=== PATIENT | female | born 1990 | race Caucasian/White ===

== ENCOUNTER 2016-03-23 16:23 | Emergency (ER) | payer SELFPAY ==
[~2016-03-23 16:23] MED LIST: CIPRO250 M1 PO; FLOMAX 0.40.4 MG/CAP PO; FLOMAX PO; IBUPROFEN800 MG PO; LEVAQUIN 2250 MG/TAB PO; ORPHENADRINE C100 MG PO; PERCOCET 325 MG1 TA2 PO; PERCOCET 325 MG1 TA5 PO; QC IBUPROFEN200 MG PO; ZOFRAN ODT4 MG PO
[2016-03-23 20:25] VITALS: BP 168/100
== END 2016-03-23 20:25 | disposition home or self-care (01) ==
LOC: ED 16:23
DX: R10.32 Left lower quadrant pain (principal); R11.2 Nausea with vomiting, unspecified; N80.8 Other endometriosis
CPT/HCPCS: J2270; J2405; J7030

== ENCOUNTER 2016-08-19 16:11 | Emergency (ER) | payer SELFPAY ==
[2016-08-19 18:18] VITALS: BP 195/113
== END 2016-08-19 17:55 | disposition home or self-care (01) ==
LOC: ED 16:11
DX: S43.401A Unspecified sprain of right shoulder joint, initial encounter (principal); S50.11XA Contusion of right forearm, initial encounter; W17.89XA Other fall from one level to another, initial encounter; Y92.008 Other place in unspecified non-institutional (private) residence as the place of occurrence of the external cause; Z76.5 Malingerer [conscious simulation]; E66.9 Obesity, unspecified
CPT/HCPCS: A4565

== ENCOUNTER 2017-01-05 19:38 | Emergency (ER) | payer SELFPAY ==
[~2017-01-05] VITALS: Ht 162.6 cm; Wt 213.6 kg
[2017-01-05 20:14] LABS: EOS # 0.3 (0.04-0.40); EOS % 2.8 % (1.0-5.0); HEMATOCRIT 41.8 % (37.0-47.0); HEMOGLOBIN 13.1 g/dL (12.5-16.0); LYMPH# 2.5 (1.50-4.00); MEAN CELL VOLUME 91 fl (78-100); MEAN CORPUSCULAR HEMOGLOBIN 28 pg (27-31); MEAN CORPUSCULAR HGB CONC 31 g/dL (33-37); MONO # 0.4 (0.20-0.80); NEU # 8.7 (1.40-6.50); PLATELET COUNT 382 K/mm3 (130-400); RED BLOOD COUNT 4.61 M/mm3 (4.10-5.30); RED CELL DISTRIBUTION WIDTH 15.2 % (11.5-14.5)
[2017-01-05 20:18] LABS: BUN/CREATININE RATIO 12.7 (6.0-26.0); CALCIUM 10.2 mg/dL (8.4-10.2); POTASSIUM 4.2 mmol/L (3.6-5.0)
[2017-01-05 20:23] LABS: URINE APPEARANCE BLOODY; URINE BILIRUBIN NEGATIVE (NEGATIVE); URINE COLOR PINKISH-YELLOW; URINE GLUCOSE NEGATIVE (NEGATIVE); URINE KETONE NEGATIVE (NEGATIVE); URINE NITRATE NEGATIVE (NEGATIVE); URINE PROTEIN(semi-quant) NEGATIVE (NEGATIVE); URINE UROBILINOGEN NORMAL (NORMAL)
[2017-01-05 20:24] LABS: URINE BLOOD 250 ery/uL (NEGATIVE); URINE LEUKOCYTE ESTERASE TRACE (NEGATIVE)
[2017-01-05] MEDS ORDERED: BACTRIM DS TAB1 EACH PO (21:13)
[2017-01-05] MEDS ORDERED: ACETAMINOPHEN-O1 TAB PO (21:13)
[2017-01-05] MEDS ORDERED: FLOMAX0.4 MG PO (21:13)
[2017-01-05 21:26] VITALS: BP 171/117
== END 2017-01-05 21:26 | disposition home or self-care (01) ==
LOC: ED 19:38
PROVIDERS: Family Medicine
DX: R31.29 Other microscopic hematuria (principal); Z87.442 Personal history of urinary calculi; R11.0 Nausea; M54.89 Other dorsalgia

== ENCOUNTER 2017-03-19 10:50 | Emergency (ER) | payer SELFPAY ==
[~2017-03-19] VITALS: Ht 162.6 cm; Wt 209.1 kg
[~2017-03-19 10:50] MED LIST changes: +ACETAMINOPHEN-O1 TAB PO; +BACTRIM DS TAB1 EACH PO; +FLOMAX0.4 MG PO
[2017-03-19 12:52] LABS: URINE APPEARANCE BLOODY; URINE COLOR PINKISH-YELLOW
[2017-03-19 12:53] LABS: PH-URINE 5.5 (5.0 - 8.0); URINE BILIRUBIN NEGATIVE (NEGATIVE); URINE BLOOD 250 ery/uL (NEGATIVE); URINE GLUCOSE NEGATIVE (NEGATIVE); URINE KETONE NEGATIVE (NEGATIVE); URINE LEUKOCYTE ESTERASE TRACE (NEGATIVE); URINE NITRATE NEGATIVE (NEGATIVE); URINE PROTEIN(semi-quant) TRACE mg/dL (NEGATIVE); URINE UROBILINOGEN NORMAL (NORMAL)
[2017-03-19] MEDS ORDERED: CIPRO500 M1 PO (13:04)
[2017-03-19] MEDS ORDERED: ZOFRAN ODT4 MG PO (13:11)
[2017-03-19 13:25] VITALS: BP 177/96
== END 2017-03-19 13:27 | disposition home or self-care (01) ==
LOC: ED 10:50
PROVIDERS: Nurse Practitioner Primary Care
DX: N20.0 Calculus of kidney (principal); Z87.442 Personal history of urinary calculi; F17.210 Nicotine dependence, cigarettes, uncomplicated; Z90.49 Acquired absence of other specified parts of digestive tract; Z88.5 Allergy status to narcotic agent; Z88.8 Allergy status to other drugs, medicaments and biological substances
CPT/HCPCS: J2270; J2405; J7030